=== PATIENT | male | born 1995 | race Two or more races ===

== ENCOUNTER 2017-12-19 12:29 | Emergency (ER) | payer OTHER ==
[~2017-12-19] VITALS: Ht 175.3 cm; Wt 83.9 kg
[2017-12-19 12:31] VITALS: BP 130/80
--- NOTE | 2017-12-19 12:35 | NUR ---
BB FRIEND FOR RT KNEE PAIN S/P HITTING HIS KNEE WITH ANOTHER PLAYER WHILE. A/OX 4, BREATHING EVEN AND UNLABORED. NO SOB, NO TRAUMA NOTED. VSS, SAFETY AND COMFORT MEASURES IN PLACE. AWAITING MD ORDERS.
--- NOTE | 2017-12-19 12:50 | NUR ---
[facility]
== END 2017-12-19 13:32 | disposition home or self-care (01) ==
LOC: ER 12:32
DX: S82.031A Displaced transverse fracture of right patella, initial encounter for closed fracture (principal); W51.XXXA Accidental striking against or bumped into by another person, initial encounter; Y93.66 Activity, soccer; Y92.89 Other specified places as the place of occurrence of the external cause; Y99.8 Other external cause status
CPT/HCPCS: 73562; 99284; A4606; Z7610